=== PATIENT | female | born 1990 | race Caucasian/White ===

== ENCOUNTER 2017-07-23 09:05 | Inpatient (IN) | payer MEDICAID ==
[2017-07-23] MEDS ORDERED: Lactated Ringers 1,000 ML IV SCH ×3 (10:15→11:30)
[2017-07-23] MEDS ORDERED: Sodium Chloride 0.9% 1,000 ML IV SCH (10:30)
[2017-07-23] MEDS ORDERED: Nalbuphine 10 MG/1 ML Vial IVPUSH ONE ×2 (11:23→15:29)
[2017-07-23] MEDS ORDERED: fentaNYL 300 MCG in Ropivacaine 200 ML EPIDUR ONE (11:39)
[2017-07-23] MEDS ORDERED: fentaNYL 100 MCG/2 ML SDV EPIDUR ONE (11:39)
[2017-07-23] MEDS ORDERED: ePHEDrine 50 MG/ML SDV ONE (11:55)
[2017-07-23] MEDS ORDERED: Naloxone 0.4 MG in Sodium Chloride 0.9% 100 ML IV PRN (12:54)
[2017-07-23] MEDS ORDERED: hydrOXYzine HCl 50 MG/ML SDV IM PRN ×2 (12:54)
[2017-07-23] MEDS ORDERED: diphenhydrAMINE 50 MG/ML SDV IVPUSH PRN (12:54)
[2017-07-23] MEDS ORDERED: Promethazine 25 MG/ML SDV IV PRN (12:54)
[2017-07-23] MEDS ORDERED: ePHEDrine 50 MG/ML SDV IVPUSH PRN (12:54)
[2017-07-23] MEDS ORDERED: Naloxone 0.4 MG/ML SDV IVPUSH PRN (12:54)
[2017-07-23] MEDS ORDERED: Ondansetron 4 MG/2 ML SDV IVPUSH PRN (12:56)
--- NOTE | 2017-07-23 13:17 | PCM.SN ---
- Free Text/Narrative Note: 27-year-old G2 para 1-37+ weeks comes in in spontaneous labor. O- Pilar tones are reactive. Cervix is 4-5/80/-3 and posterior Assessment multipara in labor. Plan she is gripping negative. Vaginal delivery. Her is coming from [facility]. So we will hold off on the rupture of membranes.
[2017-07-23] MEDS ORDERED: Metoclopramide 10 MG/2 ML SDV IVPUSH ONE (14:58)
--- NOTE | 2017-07-23 20:45 | PCM.DEL ---
L & D Note - General Info Date of Service: 07/23/17 - Delivery Note Labor: Spontaneous Delivery Outcome: Livebirth Delivery Method: Spontaneous Vaginal Delivery-Single Presentation: Left Occiput Anterior (JAVI) Nuchal Cord: None Anesthesia Type: Epidural Laceration: Periurethral Suture type: Vicryl Suture size: 4-0 Placenta: Intact, Spontaneous Cord: 3 Vessels Resuscitation Needed: No [place]: Suctioned Delivery Comments (Free Text/Narrative):: Healthy baby delivered in JAVI position. No nuchal cord. Blood loss less than 500 , complications none. - Patient Data Vitals - Most Recent: Last Vital Signs Temp 97.6 F 07/23/17 09:13 Pulse 84 07/23/17 09:13 Resp 18 07/23/17 09:13 BP 118/22 L 07/23/17 09:13 Pulse Ox 100 07/23/17 09:13 Weight - Most Recent: 160 lb Lab Results Last 24 Hours: Laboratory Results - last 24 hr 07/23/17 Range/Units 10:05 Urine Color Yellow (YELLOW) Urine Appearance Slightly cloudy (CLEAR) Urine pH 7.0 H (5.0-6.5) Ur Specific [place] 1.010 (1.010-1.025) Urine Protein Negative (NEGATIVE) mg/dL Urine Glucose (UA) Normal (NEGATIVE) mg/dL Urine Ketones Negative (NEGATIVE) mg/dL Urine Occult Blood Negative (NEGATIVE) Urine Nitrite Negative (NEGATIVE) Urine Bilirubin Negative (NEGATIVE) Urine Urobilinogen Normal (NEGATIVE) mg/dL Ur Leukocyte Esterase Negative (NEGATIVE) Urine WBC 0-5 (0) Ur Squamous Epith Cells Few H (NS,R,O) Urine Bacteria Moderate H (NS) Med Orders - Current: Current Medications Acetaminophen/Codeine Phosphate (Tylenol With Codeine No.3 300mg/30mg) 1 tab PO Q4H PRN PRN Reason: Pain (moderate 4-6) Diphenhydramine HCl (Benadryl) 25 mg IVPUSH ASDIRECTED PRN PRN Reason: PRURITUS Ephedrine Sulfate (Ephedrine Sulfate) 5 mg IVPUSH ASDIRECTED PRN PRN Reason: HYPOTENSION Hydroxyzine HCl (Vistaril) 25 - 50 mg IM Q6H PRN PRN Reason: PRURITIS Hydroxyzine HCl (Vistaril) 0 mg IM Q4H PRN PRN Reason: N/V Sodium Chloride (Normal Saline) 1,000 mls @ 999 mls/hr IV ASDIRECTED NONA Naloxone HCl 0.4 mg/ Sodium (Chloride) 101 mls @ 25 mls/hr IV ASDIRECTED PRN PRN Reason: PER ORDER OF ANESTHESIA Lactated Ringer's (Ringers, Lactated) 1,000 mls @ 125 mls/hr IV ASDIRECTED NONA Ibuprofen (Motrin) 800 mg PO Q8H NONA Naloxone HCl (Narcan) 0.1 mg IVPUSH ASDIRECTED PRN PRN Reason: RESPIRATORY STATUS Non-Formulary Medication ( Vit No.78/Iron/Fa [Prenatabs Fa]) 1 each PO DAILY NONA Ondansetron HCl (Zofran) 4 mg IVPUSH Q6H PRN PRN Reason: NAUSEA/VOMITING Last Admin: 07/23/17 14:19 Dose: 4 mg Promethazine HCl (Phenergan) 6.25 - 12.5 mg IV Q4H PRN PRN Reason: NAUSEA AND VOMITING Discontinued Medications Ephedrine Sulfate (Ephedrine Sulfate) Confirm Administered Dose 50 mg .ROUTE .STK-MED ONE Stop: 07/23/17 11:56 Last Admin: 07/23/17 11:55 Dose: Not Given Fentanyl (Sublimaze) 100 mcg EPIDUR .STK-MED ONE Stop: 07/23/17 11:40 Fentanyl 300 mcg/ Ropivacaine 206 mls @ as directed EPIDUR .STK-MED ONE Stop: 07/23/17 11:40 Metoclopramide HCl (Reglan) 10 mg IVPUSH ONETIME ONE Stop: 07/23/17 14:59 Last Admin: 07/23/17 15:19 Dose: 10 mg Nalbuphine HCl (Nubain) 10 mg IVPUSH ONETIME ONE Stop: 07/23/17 11:24 Last Admin: 07/23/17 11:25 Dose: 10 mg Nalbuphine HCl (Nubain) 5 mg IVPUSH ONETIME ONE Stop: 07/23/17 15:30 Last Admin: 07/23/17 15:54 Dose: 5 mg - Problem List & Annotations (1) Vaginal delivery SNOMED Code(s): 603861775 Code(s): O80 - ENCOUNTER FOR FULL-TERM UNCOMPLICATED DELIVERY Status: Acute Current Visit: No - Problem List Review Problem List Initiated/Reviewed/Updated: Yes - My Orders Last 24 Hours: My Active Orders 07/23/17 09:18 Admission Status [Patient Status] [ADT] Routine 07/23/17 10:30 Lactated Ringers [Ringers, Lactated] 1,000 ml IV ASDIRECTED Sodium Chloride 0.9% [Normal Saline] 1,000 ml IV ASDIRECTED 07/23/17 12:07 Admission Status [Patient Status] [ADT] Routine 07/23/17 13:51 Code Status [Resuscitation Status] Routine 07/23/17 20:41 Patient Status [ADT] Routine May Shower [RC] ASDIRECTED Up ad Christie [RC] ASDIRECTED Vital Signs [RC] PFP Acetaminophen/Codeine [Tylenol with Codeine No.3 300MG/30MG] 1 tab PO Q4H PRN Assess Lochia [WOMSER] Per Unit Routine Assess Uterine Involution [WOMSER] Per Unit Routine Breast Pump [WOMSER] Per Unit Routine 07/23/17 20:42 Ice Therapy [OM.PC] Per Unit Routine Perineal Care [OM.PC] Per Unit Routine Peripheral IV Discontinue [OM.PC] Routine Sitz Bath [OM.PC] Per Unit Routine 07/23/17 20:45 Ibuprofen [Motrin] 800 mg PO Q8H 07/23/17 Dinner Regular Diet [DIET] 07/24/17 05:11 HEMOGLOBIN/HEMATOCRIT,HH [HEME] AM 07/24/17 09:00 Vit No.78/Iron/Fa [Prenatabs FA] 1 each PO DAILY - Plan Plan:: Normal orders. See orders.
[2017-07-23] MEDS ORDERED: Albuterol 8 GM Inhaler INH PRN (20:48)
[2017-07-23] MEDS ORDERED: Oxytocin 10 Units/1 ML SDV IM ONE (20:56)
[2017-07-23] MEDS: Ibuprofen 800 MG Tab PO SCH (21:20)
[2017-07-23] MEDS: Metoclopramide 10 MG/2 ML SDV IV PRN (22:39)
[2017-07-24] MEDS: Acetaminophen/Codeine 300-30 MG Tab PO PRN ×5 (01:00→19:24)
[2017-07-24] MEDS: Ibuprofen 800 MG Tab PO SCH ×2 (05:56→12:55)
[2017-07-24] MEDS: Metoclopramide 10 MG/2 ML SDV IV PRN (06:04)
--- NOTE | 2017-07-24 08:16 | PCM.PNPP ---
- General Info Date of Service: 07/24/17 Admission Dx/Problem (Free Text): Patient states she has large clot last night that her bleeding slowed since. Breast-feeding is going well. She has no other concerns today. - Patient Data Vital Signs - Most Recent: Last Vital Signs Temp 96.9 F 07/24/17 06:00 Pulse 61 07/24/17 06:00 Resp 18 07/24/17 06:00 BP 122/73 07/24/17 06:00 Pulse Ox 99 07/24/17 06:00 Weight - Most Recent: 160 lb Lab Results - Last 24 Hours: Laboratory Results - last 24 hr 07/23/17 07/24/17 Range/Units 10:05 05:50 Hgb 11.7 (11.5-15.5) g/dL Hct 32.5 (30.0-51.3) % Urine Color Yellow (YELLOW) Urine Appearance Slightly cloudy (CLEAR) Urine pH 7.0 H (5.0-6.5) Ur Specific [place] 1.010 (1.010-1.025) Urine Protein Negative (NEGATIVE) mg/dL Urine Glucose (UA) Normal (NEGATIVE) mg/dL Urine Ketones Negative (NEGATIVE) mg/dL Urine Occult Blood Negative (NEGATIVE) Urine Nitrite Negative (NEGATIVE) Urine Bilirubin Negative (NEGATIVE) Urine Urobilinogen Normal (NEGATIVE) mg/dL Ur Leukocyte Esterase Negative (NEGATIVE) Urine WBC 0-5 (0) Ur Squamous Epith Cells Few H (NS,R,O) Urine Bacteria Moderate H (NS) Med Orders - Current: Current Medications Acetaminophen/Codeine Phosphate (Tylenol With Codeine No.3 300mg/30mg) 1 tab PO Q4H PRN PRN Reason: Pain (moderate 4-6) Last Admin: 07/24/17 05:57 Dose: 1 tab Albuterol (Ventolin Hfa) 0 gm INH Q4H PRN PRN Reason: Dyspnea Last Admin: 07/23/17 20:45 Dose: 2 puff Sodium Chloride (Normal Saline) 1,000 mls @ 999 mls/hr IV ASDIRECTED NONA Ibuprofen (Motrin) 800 mg PO Q8H NONA Stop: 07/26/17 21:01 Last Admin: 07/24/17 05:56 Dose: 800 mg Metoclopramide HCl (Reglan) 5 mg IV Q6H PRN PRN Reason: Nausea Last Admin: 07/24/17 06:04 Dose: 5 mg Multivit/Folic Acid/Iron (-U) 1 each PO DAILY NONA Discontinued Medications Diphenhydramine HCl (Benadryl) 25 mg IVPUSH ASDIRECTED PRN PRN Reason: PRURITUS Ephedrine Sulfate (Ephedrine Sulfate) Confirm Administered Dose 50 mg .ROUTE .STK-MED ONE Stop: 07/23/17 11:56 Last Admin: 07/23/17 11:55 Dose: Not Given Fentanyl (Sublimaze) 100 mcg EPIDUR .STK-MED ONE Stop: 07/23/17 11:40 Fentanyl 300 mcg/ Ropivacaine 206 mls @ as directed EPIDUR .STK-MED ONE Stop: 07/23/17 11:40 Metoclopramide HCl (Reglan) 10 mg IVPUSH ONETIME ONE Stop: 07/23/17 14:59 Last Admin: 07/23/17 15:19 Dose: 10 mg Nalbuphine HCl (Nubain) 10 mg IVPUSH ONETIME ONE Stop: 07/23/17 11:24 Last Admin: 07/23/17 11:25 Dose: 10 mg Nalbuphine HCl (Nubain) 5 mg IVPUSH ONETIME ONE Stop: 07/23/17 15:30 Last Admin: 07/23/17 15:54 Dose: 5 mg Ondansetron HCl (Zofran) 4 mg IVPUSH Q6H PRN PRN Reason: NAUSEA/VOMITING Last Admin: 07/23/17 14:19 Dose: 4 mg Oxytocin (Pitocin) 10 unit IM ONETIME ONE Stop: 07/23/17 20:57 Last Admin: 07/23/17 20:28 Dose: 10 unit - Infant Interaction Support Person: - Recovery Exam Fundal Tone: Firm Fundal Level: At Umbilicus Fundal Placement: Midline Lochia Amount: Moderate Lochia Color: Rubra/Red Perineum Description: Edematous Other Perinuem Description: 1st degree laceration Episiotomy/Laceration: Approximated Bladder Status: Voiding Urinary Elimination: Not Voiding - Exam General: Alert, Oriented, Cooperative Neck: Supple Lungs: Normal Respiratory Effort GI/Abdominal Exam: Other (Fundus firm) Extremities: No Pedal Edema - Problem List & Annotations (1) Vaginal delivery SNOMED Code(s): 528212063 Code(s): O80 - ENCOUNTER FOR FULL-TERM UNCOMPLICATED DELIVERY Status: Acute Current Visit: No - Problem List Review Problem List Initiated/Reviewed/Updated: Yes - My Orders Last 24 Hours: My Active Orders 07/23/17 09:18 Admission Status [Patient Status] [ADT] Routine 07/23/17 10:30 Sodium Chloride 0.9% [Normal Saline] 1,000 ml IV ASDIRECTED 07/23/17 12:07 Admission Status [Patient Status] [ADT] Routine 07/23/17 13:51 Code Status [Resuscitation Status] Routine 07/23/17 20:41 Patient Status [ADT] Routine May Shower [RC] ASDIRECTED Up ad Christie [RC] ASDIRECTED Vital Signs [RC] PFP Acetaminophen/Codeine [Tylenol with Codeine No.3 300MG/30MG] 1 tab PO Q4H PRN Assess Lochia [WOMSER] Per Unit Routine Assess Uterine Involution [WOMSER] Per Unit Routine Breast Pump [WOMSER] Per Unit Routine 07/23/17 20:42 Ice Therapy [OM.PC] Per Unit Routine Perineal Care [OM.PC] Per Unit Routine Peripheral IV Discontinue [OM.PC] Routine Sitz Bath [OM.PC] Per Unit Routine 07/23/17 20:48 Albuterol [Ventolin HFA] 0 gm INH Q4H PRN 07/23/17 20:49 RT Post Treatment Assessment [RC] Click to Edit 07/23/17 21:00 Ibuprofen [Motrin] 800 mg PO Q8H 07/23/17 21:57 Metoclopramide [Reglan] 5 mg IV Q6H PRN 07/23/17 Dinner Regular Diet [DIET] 07/24/17 09:00 Vit/FA/Fe Fumarate [-U] 1 each PO DAILY - Plan Plan:: Patient would like to go home today. I told her that the baby has severe every 24 hours. We'll discharge tonight at 24 hours after they do screening for the baby.
[2017-07-24] MEDS ORDERED: Prenatal Multivitamin with Calcium/Folic Acid/Fe Fumarate Cap PO SCH (09:00)
[2017-07-24 09:25] VITALS: BP 119/64
--- NOTE | 2017-07-24 18:11 | PCM.DCSUM1 ---
Discharge Summary - Hospital Course Free Text/Narrative:: Hospital course-patient did well. Hemoglobin next day was over 11. Patient wanted to go home. I told her she needs stay for total 24 hours and we'll discharged home. She did have a little bit of coughing was going on for a while so I will put her on a [employer] when she goes home. Brief History: 27-year-old 36+ weeks comes in spontaneous labor.Delivered a healthy 7 lbs. 2 oz. baby girl with no nuchal cord. See delivery note - Discharge Data Discharge Date: 07/24/17 Discharge Disposition: Home, Self-Care 01 Condition: Good - Discharge Diagnosis/Problem(s) (1) Vaginal delivery SNOMED Code(s): 290714757 ICD Code: O80 - ENCOUNTER FOR FULL-TERM UNCOMPLICATED DELIVERY Status: Acute Current Visit: No - Patient Instructions Diet: Regular Diet as Tolerated Activity: As Tolerated Driving: May Drive Today Showering/Bathing: May Shower Notify Provider of: Fever, Increased Pain, Swelling and Redness, Drainage, Nausea and/or Vomiting Other/Special Instructions: 1. Recheck 6 weeks for check. - Discharge Plan Prescriptions/Med Rec: Acetaminophen/Codeine [Tylenol with Codeine No.3 300MG/30MG] 1 tab PO Q4H PRN # 15 tablet PRN Reason: Pain (Moderate 4-6) Azithromycin [Zithromax] 250 mg PO ONETIME #6 tablet Home Medications: Home Meds Vit No.78/Iron/Fa [Prenatabs FA] 1 each PO DAILY 09/09/15 [History] Acetaminophen/Codeine [Tylenol with Codeine No.3 300MG/30MG] 1 tab PO Q4H PRN # 15 tablet 07/24/17 [Rx] Azithromycin [Zithromax] 250 mg PO ONETIME #6 tablet 07/24/17 [Rx] Patient Handouts: , Smoking Cessation, Tips for Success, Easy-to- Read, Mastitis, Pmer-az-Chnq, Depression and Baby Blues, Home Care Instructions for Mom, Challenges and Solutions, Care After Vaginal Delivery, Hand Washing - Discharge Summary/Plan Comment DC Time >30 min.: No - Patient Data Vitals - Most Recent: Last Vital Signs Temp 97.7 F 07/24/17 09:14 Pulse 66 07/24/17 09:14 Resp 16 07/24/17 09:14 BP 119/64 07/24/17 09:14 Pulse Ox 96 07/24/17 09:14 Weight - Most Recent: 160 lb Lab Results - Last 24 hrs: Laboratory Results - last 24 hr 07/24/17 Range/Units 05:50 Hgb 11.7 (11.5-15.5) g/dL Hct 32.5 (30.0-51.3) % Med Orders - Current: Current Medications Acetaminophen/Codeine Phosphate (Tylenol With Codeine No.3 300mg/30mg) 1 tab PO Q4H PRN PRN Reason: Pain (moderate 4-6) Last Admin: 07/24/17 14:13 Dose: 1 tab Albuterol (Ventolin Hfa) 0 gm INH Q4H PRN PRN Reason: Dyspnea Last Admin: 07/23/17 20:45 Dose: 2 puff Sodium Chloride (Normal Saline) 1,000 mls @ 999 mls/hr IV ASDIRECTED NONA Lactated Ringer's (Ringers, Lactated) 1,000 mls @ 999 mls/hr IV ASDIRECTED NONA Lactated Ringer's (Ringers, Lactated) 1,000 mls @ 125 mls/hr IV ASDIRECTED NONA Ibuprofen (Motrin) 800 mg PO Q8H [facility] Stop: 07/26/17 21:01 Last Admin: 07/24/17 12:55 Dose: Not Given Metoclopramide HCl (Reglan) 5 mg IV Q6H PRN PRN Reason: Nausea Last Admin: 07/24/17 06:04 Dose: 5 mg Multivit/Folic Acid/Iron (-U) 1 each PO DAILY [facility] Last Admin: 07/24/17 09:42 Dose: 1 each Discontinued Medications Diphenhydramine HCl (Benadryl) 25 mg IVPUSH ASDIRECTED PRN PRN Reason: PRURITUS Ephedrine Sulfate (Ephedrine Sulfate) Confirm Administered Dose 50 mg .ROUTE .STK-MED ONE Stop: 07/23/17 11:56 Last Admin: 07/23/17 11:55 Dose: Not Given Fentanyl (Sublimaze) 100 mcg EPIDUR .STK-MED ONE Stop: 07/23/17 11:40 Fentanyl 300 mcg/ Ropivacaine 206 mls @ as directed EPIDUR .STK-MED ONE Stop: 07/23/17 11:40 Metoclopramide HCl (Reglan) 10 mg IVPUSH ONETIME ONE Stop: 07/23/17 14:59 Last Admin: 07/23/17 15:19 Dose: 10 mg Nalbuphine HCl (Nubain) 10 mg IVPUSH ONETIME ONE Stop: 07/23/17 11:24 Last Admin: 07/23/17 11:25 Dose: 10 mg Nalbuphine HCl (Nubain) 5 mg IVPUSH ONETIME ONE Stop: 07/23/17 15:30 Last Admin: 07/23/17 15:54 Dose: 5 mg Ondansetron HCl (Zofran) 4 mg IVPUSH Q6H PRN PRN Reason: NAUSEA/VOMITING Last Admin: 07/23/17 14:19 Dose: 4 mg Oxytocin (Pitocin) 10 unit IM ONETIME ONE Stop: 07/23/17 20:57 Last Admin: 07/23/17 20:28 Dose: 10 unit *Q Meaningful Use (DIS) - VTE *Q VTE Criteria *Q: - Stroke *Q Stroke Criteria *Q: - AMI *Q AMI Criteria *Q:
== END 2017-07-24 19:25 | disposition home or self-care (01) | DRG 775 ==
LOC: FB.OBCHECK 09:05 → FB.OB 09:06 → FB.OBCHECK 09:10 → FB.OB 09:18 → OBSVTOIN 11:40
PROVIDERS: ADMIT Family Medicine; ATTEND Family Medicine
PROC: 10E0XZZ Delivery of Products of Conception, External Approach (ICD-10-PCS; principal; 2017-07-23)
PROC: 0TQDXZZ Repair Urethra, External Approach (ICD-10-PCS; 2017-07-23)
PROC: 10907ZC Drainage of Amniotic Fluid, Therapeutic from Products of Conception, Via Natural or Artificial Opening (ICD-10-PCS; 2017-07-23)
PROC: 00HU33Z Insertion of Infusion Device into Spinal Canal, Percutaneous Approach (ICD-10-PCS; 2017-07-23)
PROC: 3E0R3BZ Introduction of Anesthetic Agent into Spinal Canal, Percutaneous Approach (ICD-10-PCS; 2017-07-23)
DX: O71.82 Other specified trauma to perineum and vulva (principal); Z37.0 Single live birth; Z3A.37 37 weeks gestation of pregnancy
CPT/HCPCS: 36415; 59409; 81001; 85014; 85018; 99211; A9270-GY; J2300; J2405; J2590; J2765; J2795; J3010

== ENCOUNTER 2018-05-23 20:02 | Emergency (ER) | payer MEDICAID ==
[2018-05-23] MEDS ORDERED: Ketorolac 30 MG/ML SDV IVPUSH ONE (20:47)
[2018-05-23] MEDS ORDERED: Metoclopramide 10 MG/2 ML SDV IVPUSH ONE (20:48)
[2018-05-23] MEDS ORDERED: Lactated Ringers 1,000 ML IV SCH (21:00)
--- NOTE | 2018-05-23 21:29 | EDM.PDOC ---
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 Beti strickland has some naiusea. No aggravating factoirs. Denies vaginal bleeding. She reports preg ,about 15 weeks gestation. No fever. No dysuria. lower abdomen Pain Score (Numeric/FACES): 8 - Related Data Allergies Allergy/AdvReac Type Severity Reaction Status Date / Time Estrogens Allergy Hives Verified 05/23/18 20:16 hydrocodone Allergy Hives Verified 05/23/18 20:16 tramadol Allergy Hives Verified 05/23/18 20:16 Home Meds: Home Meds Vit No.78/Iron/Fa [Prenatabs FA] 1 each PO DAILY 09/09/15 [History] Acetaminophen/Codeine [Tylenol with Codeine No.3 300MG/30MG] 1 tab PO Q4H PRN # 15 tablet 07/24/17 [Rx] Sertraline [Zoloft] 75 mg PO DAILY 05/23/18 [History] Past Medical History - Past Health History Medical/Surgical History: Denies Medical/Surgical History Cardiovascular History: Reports: Blood Clots/VTE/DVT, Other (See Below) Other Cardiovascular History: Pt states Dr. 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: Psychiatric History: Reports: Anxiety, Bipolar, Depression Other Hematologic History: past was on blood thinners for Factor V issues - Infectious Disease History Infectious Disease History: Reports: Chicken Pox - Past Surgical History Cardiovascular Surgical History: Reports: None Respiratory Surgical History: Reports: None Female Surgical History: Reports: None Endocrine Surgical History: Reports: None Neurological Surgical History: Reports: None Social & Family History - Family History Family Medical History: Noncontributory Cardiac: Reports: Blood Clots/VTE/DVT OBGYN: Reports: Neurological: Reports: Alzheimers Disease Psychiatric: Reports: Bipolar, Depression Endocrine/Metabolic: Reports: Diabetes, type II Dermatologic: Reports: None - Tobacco Use Smoking Status *Q: Current Every Day Smoker Years of Tobacco use: 12 Packs/Tins Daily: 0.5 - Caffeine Use Caffeine Use: Reports: Coffee, Soda - Recreational Drug Use Recreational Drug Use: No ED ROS GENERAL - Review of Systems Review Of Systems: ROS reveals no pertinent complaints other than HPI. ED EXAM, GI/ABD - Physical Exam Exam: See Below Exam Limited By: No Limitations General Appearance: Alert, WD/WN, No Apparent Distress Neck: Normal Inspection Respiratory/Chest: No Respiratory Distress GI/Abdominal Exam: Normal Bowel Sounds, Tender (RLQ), Other (FHT 146). No: Mass Psychiatric: Normal Affect Skin Exam: Warm Course - Vital Signs Text/Narrative:: Patient improved with Ketoralac and Reglan IV. Declined more fluids Last Recorded V/S: Last Vital Signs Temp 98.0 F 05/23/18 20:05 Pulse 90 05/23/18 20:05 Resp 20 05/23/18 20:05 BP 125/57 L 05/23/18 20:05 Pulse Ox 100 05/23/18 20:05 - Orders/Labs/Meds Orders: Active Orders 24 hr Category Date Time Status Lactated Ringers [Ringers, Lactated] 1,000 ml Med 05/23/18 21:00 Active IV ASDIRECTED Medication Orders Lactated Ringer's (Ringers, Lactated) 1,000 mls @ 999 mls/hr IV ASDIRECTED NONA Last Admin: 05/23/18 21:03 Dose: 999 mls/hr Labs: Laboratory Tests 05/23/18 05/23/18 05/23/18 Range/Units 20:15 20:20 20:20 WBC 11.1 (4.5-12.0) X10-3/uL RBC 4.02 (3.23-5.20) x10(6)uL Hgb 13.0 (11.5-15.5) g/dL Hct 37.1 (30.0-51.3) % MCV 92.3 (80-96) fL MCH 32.5 (27.7-33.6) pg MCHC 35.2 (32.2-35.4) g/dL RDW 13.4 (11.5-15.5) % Plt Count 325 (125-369) X10(3)uL MPV 7.3 L (7.4-10.4) fL Neut % (Auto) 65.3 (46-82) % Lymph % (Auto) 26.3 (13-37) % [place] % (Auto) 4.5 (4-12) % Eos % (Auto) 3 (1.0-5.0) % Baso % (Auto) 1 (0-2) % Neut # (Auto) 7.2 (1.6-8.3) # Lymph # (Auto) 2.9 (0.6-5.0) # [place] # (Auto) 0.5 (0.0-1.3) # Eos # (Auto) 0.3 (0.0-0.8) # Baso # (Auto) 0.1 (0.0-0.2) # Sodium 139 (135-145) mmol/L Potassium 3.8 (3.5-5.3) mmol/L Chloride 103 (100-110) mmol/L Carbon Dioxide 25 (21-32) mmol/L BUN 8 (7-18) mg/dL Creatinine 0.7 (0.55-1.02) mg/dL Est Cr Clr Drug Dosing 108.63 mL/min Estimated GFR (MDRD) > 60 (>60) BUN/Creatinine Ratio 11.4 (9-20) Glucose 91 (80-116) mg/dL Calcium 8.7 (8.6-10.2) mg/dL Urine Color Yellow (YELLOW) Urine Appearance Clear (CLEAR) Urine pH 7.0 H (5.0-6.5) Ur Specific [place] 1.015 (1.010-1.025) Urine Protein Negative (NEGATIVE) mg/dL Urine Glucose (UA) Normal (NEGATIVE) mg/dL Urine Ketones Negative (NEGATIVE) mg/dL Urine Occult Blood Negative (NEGATIVE) Urine Nitrite Negative (NEGATIVE) Urine Bilirubin Negative (NEGATIVE) Urine Urobilinogen Normal (NEGATIVE) mg/dL Ur Leukocyte Esterase Negative (NEGATIVE) Urine RBC Not seen (0) Urine WBC 0-5 (0) Ur Squamous Epith Cells Few H (NS,R,O) Urine Bacteria Moderate H (NS) Meds: Medications Generic Name Dose Route Start Last Admin Trade Name Freq PRN Reason Stop Dose Admin Lactated Ringer's 1,000 mls @ 999 mls/hr 05/23/18 21:00 05/23/18 21:03 Ringers, Lactated IV 999 mls/hr ASDIRECTED NONA Administration Discontinued Medications Generic Name Dose Route Start Last Admin Trade Name Freq PRN Reason Stop Dose Admin Ketorolac Tromethamine 30 mg 05/23/18 20:47 05/23/18 21:03 Toradol IVPUSH 05/23/18 20:48 30 mg ONETIME ONE Administration Metoclopramide HCl 10 mg 05/23/18 20:48 05/23/18 21:03 Reglan IVPUSH 05/23/18 20:49 10 mg ONETIME ONE Administration Departure - Departure Time of Disposition: 21:27 Disposition: Home, Self-Care 01 Clinical Impression: Acute gastroenteritis - Discharge Information Referrals: Nahid Merino MD [Primary Care Provider] - - Problem List & Annotations (1) Acute gastroenteritis SNOMED Code(s): 62203036 Code(s): K52.9 - NONINFECTIVE GASTROENTERITIS AND COLITIS, UNSPECIFIED Status: Acute Current Visit: Yes - Problem List Review Problem List Initiated/Reviewed/Updated: Yes - My Orders Last 24 Hours: My Active Orders 05/23/18 21:00 Lactated Ringers [Ringers, Lactated] 1,000 ml IV ASDIRECTED - Assessment/Plan Last 24 Hours: My Active Orders 05/23/18 21:00 Lactated Ringers [Ringers, Lactated] 1,000 ml IV ASDIRECTED Plan: Fluids. See PCP next week
[2018-05-23 21:31] VITALS: BP 106/49
== END 2018-05-23 21:31 | disposition home or self-care (01) ==
LOC: FB.ED 20:02
DX: O99.612 Diseases of the digestive system complicating pregnancy, second trimester (principal); K52.9 Noninfective gastroenteritis and colitis, unspecified; O99.342 Other mental disorders complicating pregnancy, second trimester; F31.9 Bipolar disorder, unspecified; F41.9 Anxiety disorder, unspecified; Z79.899 Other long term (current) drug therapy; Z88.6 Allergy status to analgesic agent; Z3A.15 15 weeks gestation of pregnancy
CPT/HCPCS: 36415; 80048; 81001; 85025; 96374; 96375; 99284; J1885; J2765; J7120

== ENCOUNTER 2018-11-05 20:45 | Inpatient (IN) | payer MEDICAID ==
[2018-11-05] MEDS ORDERED: Acetaminophen 325 MG Tab PO ONE (22:10)
--- NOTE | 2018-11-05 23:07 | PN ---
DATE SEEN: 11/05/2018 SUBJECTIVE: This is a G3, P2, EDC is 11/12/18, comes in ping every 5 minutes. She came yesterday, but the contractions have gotten closer together and more uncomfortable. She lost her mucus plug 2 days ago. OBJECTIVE: Gravid. Vaginal check is 2+, 80, posterior, which has changed from the other day. Group B negative. ASSESSMENT: Multiparous, in early labor, group B negative. PLAN: Observe and see if she changes her cervix and plan on vaginal delivery. Pain control with Nubain until she declares herself as change in her cervix and then she wants epidural or intrathecal to go with that. /[id number] PE/MODAzeem CHAIDEZD
[2018-11-05] MEDS: Nalbuphine 10 MG/1 ML Vial IM PRN (23:29)
[2018-11-06] MEDS: Nalbuphine 10 MG/1 ML Vial IM PRN (08:40)
--- NOTE | 2018-11-06 08:59 | PCM.SN ---
- Free Text/Narrative Note: This is a 28-year-old with EDC of November 13 by early's ultrasound which is up 11 weeks. Was here ping. Wash overnight cervix remained about the same although she doesn't ping and did sleep although she states she had a restless nicely. O- vital signs stable afebrile heart tones reactive. Cervix-S2 +80 posterior Assessment-induction 39 week. Plan Pitocin. She is group B negative.
[2018-11-06] MEDS: Sodium Chloride 0.9% 10 ML Syringe FLUSH PRN ×2 (09:29→22:34)
[2018-11-06] MEDS: Lactated Ringers 1,000 ML IV SCH ×2 (09:30→14:30)
[2018-11-06] MEDS: Prenatal Multivitamin with Calcium/Folic Acid/Fe Fumarate Cap PO SCH (09:37)
[2018-11-06] MEDS: Acyclovir 400 MG Tab PO SCH ×3 (09:38→22:30)
[2018-11-06] MEDS ORDERED: Nalbuphine 10 MG/1 ML Vial IM ONE (13:14)
[2018-11-06] MEDS ORDERED: Nalbuphine 10 MG/1 ML Vial IVPUSH ONE (13:15)
[2018-11-06] MEDS ORDERED: diphenhydrAMINE 50 MG/ML SDV IV PRN (15:04)
[2018-11-06] MEDS ORDERED: Promethazine 12.5 MG in Sodium Chloride 0.9% 50 ML IV PRN (15:04)
[2018-11-06] MEDS ORDERED: Promethazine 6.25 MG in Sodium Chloride 0.9% 50 ML IV PRN (15:04)
[2018-11-06] MEDS ORDERED: Naloxone 0.4 MG/ML SDV IVPUSH PRN ×2 (15:04→19:17)
[2018-11-06] MEDS ORDERED: ePHEDrine 50 MG/ML SDV IVPUSH PRN ×2 (15:04→19:17)
[2018-11-06] MEDS ORDERED: Ondansetron 4 MG/2 ML SDV IVPUSH PRN (15:04)
[2018-11-06] MEDS ORDERED: Lactated Ringers 500 ML IV SCH (15:15)
--- NOTE | 2018-11-06 18:08 | PN ---
DATE SEEN: 11/06/2018 The patient has been having some nausea and dry heaves. She has some back pain and epidurals in. She is feeling very little contractions. She has a bloody show, but heart tones are reactive, 120s to 140s. She is 5-6, 90, +1. ASSESSMENT: Multip, in labor augmentation. PLAN: Vaginal delivery. /[id number] PE/MODL
--- NOTE | 2018-11-06 19:16 | PCM.DEL ---
L & D Note - General Info Date of Service: 11/06/18 - Delivery Note Labor: Augmented by Oxytocin Delivery Outcome: Livebirth Presentation: Left Occiput Anterior (JAVI) Nuchal Cord: None Anesthesia Type: Epidural Episiotomy Type: None Laceration: None Placenta: Intact, Spontaneous Cord: 3 Vessels Resuscitation Needed: No : Suctioned Provider: Nahid Merino - General Info Date of Service: 11/06/18 Admission Dx/Problem (Free Text): 28-year-old EDC 11/04/1938 weeks comes in early labor. She was AROM with clear fluid. She ended pain augmented by Pitocin and had epidural. Patient did have some nausea and retching during labor. She was group B-. Delivered a healthy baby female. JAVI position with no nuchal cord. No lacerations. EBL less than 500 - Patient Data Vitals - Most Recent: Last Vital Signs Temp 97.8 F 11/06/18 16:15 Pulse 123 H 11/06/18 18:35 Resp 16 11/06/18 07:30 BP 87/63 L 11/06/18 18:32 Pulse Ox 99 11/06/18 16:36 Weight - Most Recent: 158 lb Lab Results Last 24 Hours: Laboratory Results - last 24 hr 11/06/18 Range/Units 11:11 Membrane Rupture Negative (NEGATIVE) Med Orders - Current: Current Medications Acyclovir (Zovirax) 200 mg PO 5XDAY NONA Last Admin: 11/06/18 13:39 Dose: 200 mg Diphenhydramine HCl (Benadryl) 25 mg IV ASDIRECTED PRN PRN Reason: Pruritus Ephedrine Sulfate (Ephedrine Sulfate) 5 mg IVPUSH ASDIRECTED PRN PRN Reason: Hypotension Oxytocin/Sodium Chloride (Pitocin In Ns 20 Units/1,000 Ml) 20 unit in 1,000 mls @ 6 mls/hr IV TITRATE NONA; Protocol Last Titration: 11/06/18 14:00 Dose: 12 munits/min, 36 mls/hr Lactated Ringer's (Ringers, Lactated) 1,000 mls @ 100 mls/hr IV ASDIRECTED NONA Last Admin: 11/06/18 14:30 Dose: 100 mls/hr Lactated Ringer's (Ringers, Lactated) 1,000 mls @ 999 mls/hr IV BOLUS NONA Promethazine HCl 6.25 mg/ (Sodium Chloride) 50.25 mls @ 200 mls/hr IV Q4H PRN PRN Reason: Nausea/Vomiting Promethazine HCl 12.5 mg/ (Sodium Chloride) 50.5 mls @ 200 mls/hr IV Q6H PRN PRN Reason: Nausea/Vomiting Nalbuphine HCl (Nubain) 10 mg IM Q6H PRN PRN Reason: Pain Last Admin: 11/06/18 08:40 Dose: 10 mg Naloxone HCl (Narcan) 0.1 mg IVPUSH ONETIME PRN PRN Reason: Sedation Ondansetron HCl (Zofran) 4 mg IVPUSH Q6H PRN PRN Reason: Nausea/Vomiting Multivit/Folic Acid/Iron (-U) 1 each PO DAILY NONA Last Admin: 11/06/18 09:37 Dose: 1 each Sodium Chloride (Saline Flush) 10 ml FLUSH ASDIRECTED PRN PRN Reason: Keep Vein Open Last Admin: 11/06/18 09:29 Dose: 10 ml Discontinued Medications Acetaminophen (Tylenol) 650 mg PO NOW ONE Stop: 11/05/18 22:11 Last Admin: 11/05/18 22:44 Dose: 650 mg Nalbuphine HCl (Nubain) 5 mg IM ONETIME ONE Stop: 11/06/18 13:15 Last Admin: 11/06/18 13:34 Dose: 5 mg Nalbuphine HCl (Nubain) 5 mg IVPUSH ONETIME ONE Stop: 11/06/18 13:16 Last Admin: 11/06/18 13:38 Dose: 5 mg - Problem List & Annotations (1) Vaginal delivery SNOMED Code(s): 634611720 Code(s): O80 - ENCOUNTER FOR FULL-TERM UNCOMPLICATED DELIVERY Status: Acute Current Visit: No - Problem List Review Problem List Initiated/Reviewed/Updated: Yes - My Orders Last 24 Hours: My Active Orders 11/05/18 23:10 Nalbuphine [Nubain] 10 mg IM Q6H PRN 11/06/18 09:00 Lactated Ringers [Ringers, Lactated] 1,000 ml IV ASDIRECTED Oxytocin/Normal Saline [Pitocin in NS 20 Units/1,000 ML] 20 unit in 1,000 ml IV TITRATE Vit/FA/Fe Fumarate [-U] 1 each PO DAILY 11/06/18 09:01 Sodium Chloride 0.9% [Saline Flush] 10 ml FLUSH ASDIRECTED PRN Peripheral IV Insertion Adult [OM.PC] Routine 11/06/18 10:00 Acyclovir [Zovirax] 200 mg PO 5XDAY 11/06/18 12:49 Admission Status [Patient Status] [ADT] Routine - Plan Plan:: 1. Regular orders see orders. 2. Regular diet 3. Up ad [place]. 4. DC IV when patient is hemodynamically stable 5. Hemoglobin and hematocrit in the a.m.
[2018-11-06] MEDS ORDERED: diphenhydrAMINE 50 MG/ML SDV IVPUSH PRN (19:17)
[2018-11-07] MEDS: Ibuprofen 800 MG Tab PO PRN ×2 (06:13→14:07)
[2018-11-07] MEDS: Acyclovir 400 MG Tab PO SCH ×4 (07:05→18:39)
[2018-11-07] MEDS: Acetaminophen/Codeine 300-30 MG Tab PO PRN ×3 (10:03→18:39)
[2018-11-07] MEDS: Prenatal Multivitamin with Calcium/Folic Acid/Fe Fumarate Cap PO SCH (10:03)
--- NOTE | 2018-11-07 13:14 | PCM.PN ---
- General Info Date of Service: 11/07/18 Admission Dx/Problem (Free Text): Mom states that she is a little depressed and emotional. She says it happened so every time she has abated. She is on her Zoloft but would like to start. She says nursing is going well in her breast milk coming up. She says her significant other having some arguments but she says a lot of it's because she' s feeling sad and blue and irritable. - Patient Data Vitals - Most Recent: Last Vital Signs Temp 98.3 F 11/07/18 10:18 Pulse 81 11/07/18 00:00 Resp 16 11/07/18 10:18 BP 118/41 L 11/07/18 10:18 Pulse Ox 99 11/07/18 10:18 Weight - Most Recent: 158 lb Lab Results Last 24 Hours: Laboratory Results - last 24 hr 11/07/18 Range/Units 06:35 Hgb 10.8 L (11.5-15.5) g/dL Hct 32.6 (30.0-51.3) % Med Orders - Current: Current Medications Acetaminophen/Codeine Phosphate (Tylenol With Codeine No.3 300mg/30mg) 1 tab PO Q4H PRN PRN Reason: Pain (moderate 4-6) Last Admin: 11/07/18 10:03 Dose: 1 tab Acyclovir (Zovirax) 200 mg PO 5XDAY [facility] Last Admin: 11/07/18 10:03 Dose: 200 mg Ibuprofen (Motrin) 800 mg PO Q8H PRN PRN Reason: mild pain or fever Last Admin: 11/07/18 06:13 Dose: 800 mg Multivit/Folic Acid/Iron (-U) 1 each PO DAILY [facility] Last Admin: 11/07/18 10:03 Dose: 1 each Discontinued Medications Acetaminophen (Tylenol) 650 mg PO NOW ONE Stop: 11/05/18 22:11 Last Admin: 11/05/18 22:44 Dose: 650 mg Diphenhydramine HCl (Benadryl) 25 mg IV ASDIRECTED PRN PRN Reason: Pruritus Diphenhydramine HCl (Benadryl) 25 mg IVPUSH Q6H PRN PRN Reason: Itching or Nausea Ephedrine Sulfate (Ephedrine Sulfate) 5 mg IVPUSH ASDIRECTED PRN PRN Reason: Hypotension Ephedrine Sulfate (Ephedrine Sulfate) 5 mg IVPUSH ASDIRECTED PRN PRN Reason: Other Oxytocin/Sodium Chloride (Pitocin In Ns 20 Units/1,000 Ml) 20 unit in 1,000 mls @ 6 mls/hr IV TITRATE NONA; Protocol Last Titration: 11/06/18 14:00 Dose: 12 munits/min, 36 mls/hr Lactated Ringer's (Ringers, Lactated) 1,000 mls @ 100 mls/hr IV ASDIRECTED NONA Last Admin: 11/06/18 14:30 Dose: 100 mls/hr Lactated Ringer's (Ringers, Lactated) 1,000 mls @ 999 mls/hr IV BOLUS NONA Promethazine HCl 6.25 mg/ (Sodium Chloride) 50.25 mls @ 200 mls/hr IV Q4H PRN PRN Reason: Nausea/Vomiting Promethazine HCl 12.5 mg/ (Sodium Chloride) 50.5 mls @ 200 mls/hr IV Q6H PRN PRN Reason: Nausea/Vomiting Nalbuphine HCl (Nubain) 10 mg IM Q6H PRN PRN Reason: Pain Last Admin: 11/06/18 08:40 Dose: 10 mg Nalbuphine HCl (Nubain) 5 mg IM ONETIME ONE Stop: 11/06/18 13:15 Last Admin: 11/06/18 13:34 Dose: 5 mg Nalbuphine HCl (Nubain) 5 mg IVPUSH ONETIME ONE Stop: 11/06/18 13:16 Last Admin: 11/06/18 13:38 Dose: 5 mg Naloxone HCl (Narcan) 0.1 mg IVPUSH ONETIME PRN PRN Reason: Sedation Naloxone HCl (Narcan) 0.1 mg IVPUSH ONETIME PRN PRN Reason: Respiratory Depression Ondansetron HCl (Zofran) 4 mg IVPUSH Q6H PRN PRN Reason: Nausea/Vomiting Last Admin: 11/06/18 19:30 Dose: 4 mg Sodium Chloride (Saline Flush) 10 ml FLUSH ASDIRECTED PRN PRN Reason: Keep Vein Open Last Admin: 11/06/18 22:34 Dose: 10 ml - Exam General: Alert, Oriented, Cooperative, Moderate Distress Neck: Supple GI/Abdominal Exam: Other (Fundus is firm) Extremities: No Pedal Edema Psy/Mental Status: Alert, Labile Mood, Anxious, Depressed, Agitated - Problem List & Annotations (1) Vaginal delivery SNOMED Code(s): 053975968 Code(s): O80 - ENCOUNTER FOR FULL-TERM UNCOMPLICATED DELIVERY Status: Acute Current Visit: No (2) Depression SNOMED Code(s): 41940758 Code(s): F32.9 - MAJOR DEPRESSIVE DISORDER, SINGLE EPISODE, UNSPECIFIED Status: Acute Current Visit: Yes - Problem List Review Problem List Initiated/Reviewed/Updated: Yes - My Orders Last 24 Hours: My Active Orders 11/06/18 19:17 Ambulate [RC] PER UNIT ROUTINE Acetaminophen/Codeine [Tylenol with Codeine No.3 300MG/30MG] 1 tab PO Q4H PRN Ibuprofen [Motrin] 800 mg PO Q8H PRN Assess Lochia [WOMSER] Per Unit Routine Resuscitation Status Routine 11/06/18 19:18 Patient Status [ADT] Routine Vital Signs [RC] PER UNIT ROUTINE 11/06/18 19:19 Assess Uterine Involution [WOMSER] Per Unit Routine Ice Therapy [OM.PC] Per Unit Routine 11/06/18 19:21 Peripheral IV Discontinue [OM.PC] Routine 11/06/18 Dinner Regular Diet [DIET] 11/07/18 12:04 Ready for Discharge [RC] PER UNIT ROUTINE - Plan Plan:: 1. Restart Zoloft. 2. They want to be discharged today. That'll be after 24 hours. 3. Recheck 6 weeks for care. 4. I told the patient that when she comes in with the baby out recheck on her mental status also.
--- NOTE | 2018-11-07 13:18 | PCM.DCSUM1 ---
Discharge Summary - Hospital Course Free Text/Narrative:: Hospital course-patient's hemoglobin is a little over 10 the next morning. She was doing well physically. She said 3 helping her pain and Motrin also. Bleeding was slowing upper she was having some depression. She says the brace was tough on her emotionally. She wants to restart her Zoloft. Her understanding other want to go home after 24 hours. I will discharge him home and then check on her mental condition which comes with the baby at one week and 2 weeks. Level check in 6 weeks. Patient has history of genital herpes. She was not taking her acyclovir started 2 days before delivery. We did inspection of the vaginal area and there is no lesion seen so we proceeded with vaginal delivery. Brief History: This is a 28-year-old EDC by early ultrasound of . Comes in early labor.She had a history of hepatitis C and blood clotting. 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 Hepatitis C antibodies positive but there are days negative so she does not have it. She went into labor and had a I was healthy. See . Group B is negative. Diagnosis: Stroke: No - Discharge Data Discharge Date: 11/07/18 Discharge Disposition: Home, Self-Care 01 Condition: Good - Discharge Diagnosis/Problem(s) (1) Vaginal delivery SNOMED Code(s): 572531587 ICD Code: O80 - ENCOUNTER FOR FULL-TERM UNCOMPLICATED DELIVERY Status: Acute Current Visit: No (2) Depression SNOMED Code(s): 40722582 ICD Code: F32.9 - MAJOR DEPRESSIVE DISORDER, SINGLE EPISODE, UNSPECIFIED Status: Acute Current Visit: Yes - Patient Instructions Diet: Regular Diet as Tolerated Activity: Apply Ice Driving: May Drive Today Showering/Bathing: May Shower Other/Special Instructions: 1. Recheck in 6 weeks for care. - Discharge Plan Prescriptions/Med Rec: Acetaminophen/Codeine [Tylenol with Codeine No.3 300MG/30MG] 1 tab PO Q4H PRN # 15 tablet PRN Reason: Pain (Moderate 4-6) Sertraline [Zoloft] 75 mg PO DAILY #90 tablet Home Medications: Home Meds Vit No.78/Iron/Fa [Prenatabs FA] 1 each PO DAILY 09/09/15 [History] Acyclovir [Zovirax] 200 mg PO 5XDAY 11/06/18 [History] Acetaminophen/Codeine [Tylenol with Codeine No.3 300MG/30MG] 1 tab PO Q4H PRN # 15 tablet 11/07/18 [Rx] Sertraline [Zoloft] 75 mg PO DAILY #90 tablet 11/07/18 [Rx] Patient Handouts: , Steps to Quit Smoking, [id number], and Inducing , Mastitis, [id number], Vaginal Delivery, and Mastitis, Baby Blues, Thrush and , Home Care Instructions for Mom, Vaginal Delivery, Care After, Breast Engorgement , Breast Pumping Tips, [id number], Tips for a Good Latch, Care After Vaginal Delivery, Eating Plan for Women, Storing Breast Milk - Discharge Summary/Plan Comment DC Time >30 min.: No - General Info Date of Service: 11/07/18 - Patient Data Vitals - Most Recent: Last Vital Signs Temp 98.3 F 11/07/18 10:18 Pulse 81 11/07/18 00:00 Resp 16 11/07/18 10:18 BP 118/41 L 11/07/18 10:18 Pulse Ox 99 11/07/18 10:18 Weight - Most Recent: 158 lb Lab Results - Last 24 hrs: Laboratory Results - last 24 hr 11/07/18 Range/Units 06:35 Hgb 10.8 L (11.5-15.5) g/dL Hct 32.6 (30.0-51.3) % Med Orders - Current: Current Medications Acetaminophen/Codeine Phosphate (Tylenol With Codeine No.3 300mg/30mg) 1 tab PO Q4H PRN PRN Reason: Pain (moderate 4-6) Last Admin: 11/07/18 10:03 Dose: 1 tab Acyclovir (Zovirax) 200 mg PO 5XDAY [facility] Last Admin: 11/07/18 10:03 Dose: 200 mg Ibuprofen (Motrin) 800 mg PO Q8H PRN PRN Reason: mild pain or fever Last Admin: 11/07/18 06:13 Dose: 800 mg Multivit/Folic Acid/Iron (-U) 1 each PO DAILY [facility] Last Admin: 11/07/18 10:03 Dose: 1 each Discontinued Medications Acetaminophen (Tylenol) 650 mg PO NOW ONE Stop: 11/05/18 22:11 Last Admin: 11/05/18 22:44 Dose: 650 mg Diphenhydramine HCl (Benadryl) 25 mg IV ASDIRECTED PRN PRN Reason: Pruritus Diphenhydramine HCl (Benadryl) 25 mg IVPUSH Q6H PRN PRN Reason: Itching or Nausea Ephedrine Sulfate (Ephedrine Sulfate) 5 mg IVPUSH ASDIRECTED PRN PRN Reason: Hypotension Ephedrine Sulfate (Ephedrine Sulfate) 5 mg IVPUSH ASDIRECTED PRN PRN Reason: Other Oxytocin/Sodium Chloride (Pitocin In Ns 20 Units/1,000 Ml) 20 unit in 1,000 mls @ 6 mls/hr IV TITRATE NONA; Protocol Last Titration: 11/06/18 14:00 Dose: 12 munits/min, 36 mls/hr Lactated Ringer's (Ringers, Lactated) 1,000 mls @ 100 mls/hr IV ASDIRECTED NONA Last Admin: 11/06/18 14:30 Dose: 100 mls/hr Lactated Ringer's (Ringers, Lactated) 1,000 mls @ 999 mls/hr IV BOLUS NONA Promethazine HCl 6.25 mg/ (Sodium Chloride) 50.25 mls @ 200 mls/hr IV Q4H PRN PRN Reason: Nausea/Vomiting Promethazine HCl 12.5 mg/ (Sodium Chloride) 50.5 mls @ 200 mls/hr IV Q6H PRN PRN Reason: Nausea/Vomiting Nalbuphine HCl (Nubain) 10 mg IM Q6H PRN PRN Reason: Pain Last Admin: 11/06/18 08:40 Dose: 10 mg Nalbuphine HCl (Nubain) 5 mg IM ONETIME ONE Stop: 11/06/18 13:15 Last Admin: 11/06/18 13:34 Dose: 5 mg Nalbuphine HCl (Nubain) 5 mg IVPUSH ONETIME ONE Stop: 11/06/18 13:16 Last Admin: 11/06/18 13:38 Dose: 5 mg Naloxone HCl (Narcan) 0.1 mg IVPUSH ONETIME PRN PRN Reason: Sedation Naloxone HCl (Narcan) 0.1 mg IVPUSH ONETIME PRN PRN Reason: Respiratory Depression Ondansetron HCl (Zofran) 4 mg IVPUSH Q6H PRN PRN Reason: Nausea/Vomiting Last Admin: 11/06/18 19:30 Dose: 4 mg Sodium Chloride (Saline Flush) 10 ml FLUSH ASDIRECTED PRN PRN Reason: Keep Vein Open Last Admin: 11/06/18 22:34 Dose: 10 ml
[2018-11-07 19:41] VITALS: BP 90/60
--- NOTE | 2018-11-09 08:25 | PN ---
DATE SEEN: 11/06/2018 SUBJECTIVE: The patient is in labor and is getting Pitocin. OBJECTIVE: Cervix is 3, 80, minus 1, still a little bit posterior. ASSESSMENT: Induction augmentation of 39 week multip. PLAN: AROM cleared, no cord, head well applied, and vaginal delivery. /[id number] PE/MODL
== END 2018-11-07 19:42 | disposition home or self-care (01) | DRG 807 ==
LOC: FB.OB 20:45 → FB.OBCHECK 20:45 → FB.OB 23:03 → OBSVTOIN 11-06 12:49
PROVIDERS: ADMIT Family Medicine; ATTEND Family Medicine
PROC: 10E0XZZ Delivery of Products of Conception, External Approach (ICD-10-PCS; principal; 2018-11-06)
PROC: 10907ZC Drainage of Amniotic Fluid, Therapeutic from Products of Conception, Via Natural or Artificial Opening (ICD-10-PCS; 2018-11-06)
PROC: 3E033VJ Introduction of Other Hormone into Peripheral Vein, Percutaneous Approach (ICD-10-PCS; 2018-11-06)
PROC: 00HU33Z Insertion of Infusion Device into Spinal Canal, Percutaneous Approach (ICD-10-PCS; 2018-11-06)
DX: O80 Encounter for full-term uncomplicated delivery (principal); Z37.0 Single live birth; Z3A.39 39 weeks gestation of pregnancy; F53.0 Postpartum depression
CPT/HCPCS: 36415; 59409; 84112; 85014; 85018; 99211; A9270-GY; J2300; J2405; J2590; J7120

== ENCOUNTER 2019-01-06 10:44 | Emergency (ER) | payer MEDICAID ==
[2019-01-06] MEDS ORDERED: Lidocaine 1% 20 ML MDV INJECT ONE (10:45)
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
--- NOTE | 2019-01-06 15:28 | CR ---
INDICATION: Slammed right hand in door - tip of the 3rd digit. RIGHT HAND: Three views of the right hand with attention to the 3rd digit revealed evidence of soft tissue injury at the tip of the finger - near the DIPJ dorsally and medially. No underlying fracture, dislocation, or other significant bone or joint abnormality could be identified. MTDD
== END 2019-01-06 12:40 | disposition home or self-care (01) ==
LOC: FB.ED 10:44
DX: S61.212A Laceration without foreign body of right middle finger without damage to nail, initial encounter (principal); J45.909 Unspecified asthma, uncomplicated; F17.200 Nicotine dependence, unspecified, uncomplicated; Z88.5 Allergy status to narcotic agent; Z88.8 Allergy status to other drugs, medicaments and biological substances; Z79.899 Other long term (current) drug therapy; W23.0XXA Caught, crushed, jammed, or pinched between moving objects, initial encounter
CPT/HCPCS: 12002; 12013; 73130-RT; 99283; J2001

== ENCOUNTER 2019-07-25 00:05 | Emergency (ER) | payer MEDICAID ==
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
[2019-07-25] MEDS ORDERED: Acetaminophen/Codeine 300-30 MG Tab PO ONE (01:01)
[2019-07-25 02:58] VITALS: BP 124/59; PULSE 79
== END 2019-07-25 02:45 | disposition home or self-care (01) ==
LOC: FB.ED 00:05
DX: O9A.212 Injury, poisoning and certain other consequences of external causes complicating pregnancy, second trimester (principal); T14.8XXA Other injury of unspecified body region, initial encounter; O99.89 Other specified diseases and conditions complicating pregnancy, childbirth and the puerperium; R51 Headache; M79.601 Pain in right arm; M79.602 Pain in left arm; R22.0 Localized swelling, mass and lump, head; O99.512 Diseases of the respiratory system complicating pregnancy, second trimester; J45.909 Unspecified asthma, uncomplicated; O99.342 Other mental disorders complicating pregnancy, second trimester; F32.9 Major depressive disorder, single episode, unspecified; F41.9 Anxiety disorder, unspecified; Z3A.00 Weeks of gestation of pregnancy not specified; Z86.718 Personal history of other venous thrombosis and embolism; Z88.6 Allergy status to analgesic agent; Z88.8 Allergy status to other drugs, medicaments and biological substances; Y04.0XXA Assault by unarmed brawl or fight, initial encounter
CPT/HCPCS: 70450; 70486; 80305; 99284; A9270

== ENCOUNTER 2022-07-08 11:51 | Emergency (ER) | payer MEDICAID ==
[2022-07-08 12:15] VITALS: BP 112/44; PULSE 87
== END 2022-07-08 12:24 | disposition left against medical advice (07) ==
LOC: FB.ED 11:51
DX: Z53.21 Procedure and treatment not carried out due to patient leaving prior to being seen by health care provider (principal)